=== PATIENT | male | born 1990 | race Caucasian/White ===

== ENCOUNTER 2019-10-14 09:20 | Emergency (ER) | payer OTHER, SELFPAY ==
[2019-10-14 09:34] VITALS: BP 141/98; PULSE 71; RESP 20; TEMP 36.6
--- NOTE | 2019-10-14 09:35 | ED.URI ---
HPI - URI/Sore Throat General Chief Complaint: Upper Respiratory Infection Stated Complaint: Cough/sinus pain Time Seen by Provider: 10/14/19 09:35 Source: patient and RN notes reviewed History of Present Illness HPI Narrative: Patient is a 29-year-old male that presents the urgent care with complaints of cough, sinus pain and congestion. Patient states that he woke up this morning with the symptoms. Denies any shortness of breath or wheezing. States that he does have a history of asthma but has not had any issues for some time . Patient denies any use of [id number] medication. Denies any known exposure to COVID. No other acute complaints. No acute distress noted. Patient read the plan of care. Related Data Home Medications Medication Instructions Recorded Confirmed No Home Medications 10/14/19 10/14/19 Allergies Allergy/AdvReac Type Severity Reaction Status Date / Time No Known Allergies Allergy Verified 10/14/19 09:37 Review of Systems Review of Systems: Narrative: CONSTITUTIONAL: Denies fever, chills, or sweats. EYES: Denies visual changes, redness, or discharge. ENT: Reports of sinus drainage, sinus congestion CARDIOVASCULAR: Denies chest pain, palpitations, or edema. RESPIRATORY: Reports of cough without dyspnea or wheezing GASTROINTESTINAL: Denies abdominal pain, nausea, vomiting, or diarrhea. GENITOURINARY: Denies dysuria or hematuria. SKIN: Denies rash or itching. MUSCULOSKELETAL: Denies back pain, joint pain, or myalgia. NEUROLOGIC: Denies headache, numbness, or weakness. All other systems reviewed are negative, except as documented in HPI. PMFSH Comments At the time of my signature, I reviewed and agree with the nursing past medical, surgical, social, and family history. There is no relevant family history pertinent to the patient complaint. Exam Narrative: Exam Narrative: GENERAL: This is a well-nourished, well-developed patient, in no apparent distress. HEAD: normocephalic, atraumatic. EYES: PERRL. Sclera clear/white. Vision is grossly intact. EARS: External ears normal, auditory canals clear and without drainage, TMs normal without perforation. Hearing grossly intact. NOSE: External nose normal with no obvious nasal discharge, nares without redness, no rhinorrhea. THROAT: Mucous membranes moist, mild erythema noted the posterior oropharynx NECK: Neck supple CARDIOVASCULAR: Regular rate and rhythm without murmurs, gallops, or rubs. RESPIRATORY: Clear to auscultation. Breath sounds equal bilaterally. No wheezes, rales, or rhonchi. SKIN: warm, intact with no suspicious lesions or rash, good texture and turgor. NEURO: awake, alert, and oriented to person, place and time. There were no obvious focal neurologic abnormalities. EXTREMITIES: No clubbing, cyanosis, or edema. Course Vital Signs Vital signs: Vital Signs Temperature 97.9 F 10/14/19 09:34 Pulse Rate 71 10/14/19 09:34 Respiratory Rate 10/14/19 09:34 Blood Pressure 141/98 H 10/14/19 09:34 Temperature 97.9 F 10/14/19 09:34 Pulse Rate 71 10/14/19 09:34 Respiratory Rate 10/14/19 09:34 Blood Pressure 141/98 H 10/14/19 09:34 Reviewed?patient is informed that they may have pre-hypertension or hypertension based on a blood pressure reading in the department. I recommend the patient call the primary care provider listed on their discharge instructions or a physician of their choice this week to arrange follow-up for further evaluation of possible pre-hypertension or hypertension. MDM - URI/Sore Throat MDM Narrative Medical decision making narrative: Advised the patient to use Claritin or Zyrtec in conjunction with Flonase nasal spray [id number] for symptom relief. Must be consistent with the medication for several days, or until the weather is consistent. If you work outside, it may be useful to stay on the medication for couple weeks. Use humidifier at night. Do not sleep with the windows open. If
== END 2019-10-14 09:52 | disposition home or self-care (01) ==
PROVIDERS: Emergency Provider Nurse Practitioner Family
DX: J32.9 Chronic sinusitis, unspecified (principal)
CPT/HCPCS: 99211; G0463

== ENCOUNTER 2021-06-30 10:08 | Emergency (ER) | payer OTHER, SELFPAY ==
[2021-06-30 10:15] VITALS: BP 142/113; PULSE 85; RESP 16; TEMP 36.6; O2SAT 99
[2021-06-30] MEDS: TETANUS,DIPHTHERIA,AC PERTUSSIS ADULT (0.5 ML) BOOSTRIX IM (10:28)
--- NOTE | 2021-06-30 10:30 | ED.WOUNDLAC ---
HPI - Wound/Laceration General Chief Complaint: Wound/Laceration Stated Complaint: R KNEE LACERATION Source: patient Mode of arrival: ambulatory Limitations: no limitations History of Present Illness HPI narrative: 30-year-old male presented for complaint of puncture wound to right knee after injury today. He states he was cutting a box with his own pocket knife when it slipped and stabbed him in the knee. He cleansed the wound with peroxide and applied Neosporin prior to arrival. States pain is mild. Patient denies numbness, tingling, weakness, difficulty ambulating, or decreased range of motion to the right knee. He will need to be updated on his tetanus vaccination. Related Data Home Medications Medication Instructions Recorded Confirmed No Home Medications 10/14/19 06/30/21 Allergies Allergy/AdvReac Type Severity Reaction Status Date / Time No Known Allergies Allergy Verified 06/30/21 10:16 Review of Systems Review of Systems: CONSTITUTIONAL: Denies body aches, fever, chills, or sweats. EYES: Denies visual changes, redness, or discharge. ENT: Denies rhinorrhea, congestion, sore throat, or otalgia. CARDIOVASCULAR: Denies chest pain, palpitations, or edema. RESPIRATORY: Denies cough or dyspnea. GASTROINTESTINAL: Denies abdominal pain, nausea, vomiting, or diarrhea. GENITOURINARY: Denies dysuria or hematuria. SKIN: right knee wound MUSCULOSKELETAL: Denies back pain, joint pain, or myalgia. NEUROLOGIC: Denies headache, numbness, tingling, or weakness. PSYCH: Denies depression or anxiety. PMFSH Comments At time of signature, I have reviewed and agree with nursing past medical, surgical, social and family history unless otherwise noted. Please see nursing chart for further information. There is no relevant family history pertinent to the presenting complaint Exam Narrative: GENERAL: Well-appearing, well-nourished, and in no acute distress. HEAD: Normocephalic, atraumatic. EYES: PERRLA, conjunctivae clear, and EOMI. ENT: Mucous membranes moist. Oropharynx without edema, erythema or lesions. NECK: Supple. No lymphadenopathy CHEST: Clear to auscultation. No respiratory distress. HEART: Regular rate and rhythm. SKIN: Warm, dry. right knee puncture wound approx 0.5cm no active drainage NEURO: Alert and oriented x3. PSYCH: Normal mood and affect Course Course Emergency Course: Wound cleansed with soap and water, wound is approximated without active drainage. Neosporin and Band-Aid applied. Tetanus updated. Patient is aware of diagnosis, understands and agrees to treatment plan. Anticipatory guidance given. Patient agrees to follow-up as directed and is aware of reasons to seek care at the emergency department. Portions of this record may have been created with voice recognition software Level of Care: Express Care Visit Vital Signs Vital signs: Vital Signs Temperature 97.9 F 06/30/21 10:15 Pulse Rate 85 06/30/21 10:15 Respiratory Rate 16 06/30/21 10:15 Blood Pressure 142/113 H 06/30/21 10:15 Pulse Oximetry 99 06/30/21 10:15 Temperature 97.9 F 06/30/21 10:15 Pulse Rate 85 06/30/21 10:15 Respiratory Rate 16 06/30/21 10:15 Blood Pressure 142/113 H 06/30/21 10:15 Pulse Oximetry 99 06/30/21 10:15 Reviewed MDM - Wound/Laceration Differential Diagnosis Differential diagnosis: Likely laceration, abrasion and avulsion of skin Discharge Plan Discharge Clinical Impression: Puncture wound of knee, right Qualifiers: Encounter type: initial encounter Qualified Code(s): S81.031A - Puncture wound without foreign body, right knee, initial encounter Patient Disposition: Home, Self-Care Condition: Stable Instructions: Antibiotic Form, Puncture Wound (ED) Additional Instructions: Keep area clean and dry. Avoid using alcohol or peroxide to the site. Okay to clean it with warm water and mild soap. You can use triple antibiotic ointment and a Band-Aid for 24 hours.
== END 2021-06-30 10:48 | disposition home or self-care (01) ==
PROVIDERS: Emergency Provider Nurse Practitioner Family
DX: S81.031A Puncture wound without foreign body, right knee, initial encounter (principal); W26.0XXA Contact with knife, initial encounter; Z23 Encounter for immunization
CPT/HCPCS: 90471; 90715; 99212; G0463